=== PATIENT | male | born 1975 | race Caucasian/White ===

== ENCOUNTER 2022-06-28 05:37 | Emergency (ER) | payer OTHER ==
[~2022-06-28] VITALS: Ht 185.4 cm; Wt 86.0 kg
[2022-06-28] MEDS ORDERED: FAMOTIDINE 20MG/2ML VIAL IV ONE (06:00)
[2022-06-28] MEDS ORDERED: METHYLPREDNISOLONE SOD SUCC 125 MG/2 ML VIAL IV ONE (06:00)
[2022-06-28] MEDS ORDERED: DEXAMETHASONE 10 MG/ML VIAL IV ONE (06:00)
[2022-06-28] MEDS ORDERED: P50 PO (08:59)
[2022-06-28 09:15] VITALS: BP 131/87
== END 2022-06-28 09:24 | disposition home or self-care (01) ==
LOC: ER 05:43
DX: T78.40XA Allergy, unspecified, initial encounter (principal); X58.XXXA Exposure to other specified factors, initial encounter
CPT/HCPCS: 96374; 96375; 99284; J1100; J2930; J3490